=== PATIENT | female | born 1965 | race Caucasian/White ===

== ENCOUNTER → 2020-03-27 | Outpatient (CLI) | payer OTHER ==
[~2020-03-27] MED LIST: FEXO180T81 PO; FLUT9.9S NS; GLUC100018 PO; LOSA1TAB19 PO
--- NOTE | 2020-03-27 13:15 | EKG ---
[facility] [address] [place] [address] Test Date: 2020-03-27 Test Time: 13:12:28 Pat Name: FÉLIX RIVERA Department: Room: Gender: F Bulk Fluids Handler: [facility] : 1965 Requested By: MARISSA VALENTE Order Number: [id number] Reading MD: Kavon Walton MD Measurements Intervals [place] Rate: 59 P: 35 MS: 202 QRS: -14 QRSD: 86 T: 28 QT: 414 QTc: 410 Interpretive Statements SINUS RHYTHM Electronically Signed On 03-30-2020 16:13:52 PHYSICIAN EXTENDER by Kavon Walton MD
[2020-03-27 13:18] LABS: BASO % 1 % (0-3); EOS # 0.1 x10^3/uL (0.0-0.7); EOS % 3 % (0-3); HEMATOCRIT 34.5 % (36.0-47.0); HEMOGLOBIN 11.3 g/dL (12.0-15.5); LYMPH # 1.6 x10^3/uL (1.0-4.8); LYMPH % 27 % (24-48); MEAN CORPUSCULAR HEMOGLOBIN 27 pg (25-35); MEAN CORPUSCULAR HGB CONC 33 g/dL (31-37); MEAN CORPUSCULAR VOLUME 82 fL (79-100); MONO # 0.6 x10^3/uL (0.0-1.1); MONO % 10 % (0-9); NEUT # 3.6 x10^3/uL (1.8-7.7); NEUT % 60 % (31-73); PLATELET COUNT 191 x10^3/uL (140-400); RED BLOOD COUNT 4.21 x10^6/uL (3.50-5.40); RED CELL DISTRIBUTION WIDTH 14.9 % (11.5-14.5)
[2020-03-27 13:18] LABS: BILIRUBIN,URINE NEGATIVE (NEG); CLARITY,URINE CLEAR; COLOR,URINE YELLOW; NITRITE,URINE NEGATIVE (NEG); PH,URINE 5.5 (<5.0-8.0); PROTEIN,URINE NEGATIVE (NEG-TRACE); UROBILINOGEN,URINE 0.2 mg/dL (0.2 mg/dL)
[2020-03-27 13:24] LABS: ALBUMIN 3.8 g/dL (3.4-5.0); ALBUMIN/GLOBULIN RATIO 1.2 (1.0-1.7); CALCIUM 8.7 mg/dL (8.5-10.1); CREATININE 0.8 mg/dL (0.6-1.0); POTASSIUM 3.7 mmol/L (3.5-5.1); TOTAL BILIRUBIN 0.4 mg/dL (0.2-1.0); TOTAL PROTEIN 6.9 g/dL (6.4-8.2)
[2020-03-27 13:30] LABS: BACTERIA,URINE FEW /HPF (0-FEW); RBC,URINE 0 /HPF (0-2); WBC,URINE 0 /HPF (0-4)
--- NOTE | 2020-03-27 14:31 | RAD ---
CHEST PA LATERAL INDICATION: preop. COMPARISON STUDY: None. FINDINGS: Lungs: Normal lung volume. No pulmonary mass or consolidation. The tracheobronchial tree and hilar structures are normal. Pleura: No pleural effusion or pneumothorax. Heart and Mediastinum: The cardiomediastinal silhouette is normal. The great vessels of the thorax are normal. Bones and Soft Tissues: The bones and soft tissues are within normal limits. IMPRESSION: No acute cardiopulmonary process. Electronically signed by: Eric Seals MD (03/27/2020 2:29 PM) [id number]
== END ==
LOC: SURGPAT 12:10
PROVIDERS: ATTEND Obstetrics & Gynecology
DX: Z01.818 Encounter for other preprocedural examination (principal); I10 Essential (primary) hypertension; Z20.828 Contact with and (suspected) exposure to other viral communicable diseases
CPT/HCPCS: 71046; 80053; 81001; 85025; 93005; U0003

== ENCOUNTER 2020-04-02 06:53 | Observation (INO) | payer OTHER ==
[2020-04-02] VITALS (7 sets, daily range): BP systolic 113–143; BP diastolic 67–82
[~2020-04-02] VITALS: Ht 170.2 cm; Wt 49.9 kg
[~2020-04-02 06:53] MED LIST changes: +ceFAZolin SODIUM IV Push 1 GM VIAL. IVP PRN
[2020-04-02] MEDS ORDERED: BUPIVACAINE-EPI 0.25%-1:200000 MPF 30 ML VIAL. INJ PRN (07:00)
[2020-04-02] MEDS ORDERED: IV RINGERS,LACTATED 1000ML 1,000 ML IV SCH (07:00)
[2020-04-02] MEDS ORDERED: fentaNYL PF VIAL 100 MCG/2 ML VIAL IV PRN (07:00)
[2020-04-02] MEDS ORDERED: ONDANSETRON PF 4 MG/2 ML VIAL. IV PRN ×2 (07:00→11:00)
[2020-04-02] MEDS ORDERED: PROCHLORPERAZINE 10 MG/2 ML VIAL. IV PRN (07:00)
[2020-04-02] MEDS ORDERED: ROCURONIUM 50 MG/5 ML VIAL. ONE ×2 (08:03→09:42)
[2020-04-02] MEDS ORDERED: GLYCOPYRROLATE 1 MG/5 ML VIAL. ONE (08:03)
[2020-04-02] MEDS ORDERED: fentaNYL PF VIAL 100 MCG/2 ML VIAL ONE ×3 (08:03→11:09)
[2020-04-02] MEDS ORDERED: ONDANSETRON PF 4 MG/2 ML VIAL. ONE (08:04)
[2020-04-02] MEDS ORDERED: MIDAZOLAM HCL/PF 2 MG/2 ML VIAL. ONE (08:04)
[2020-04-02] MEDS ORDERED: NEOSTIGMINE METHYLSULFATE 5 MG/5 ML SYRINGE. ONE (08:04)
[2020-04-02] MEDS ORDERED: DEXAMETHASONE SOD PHOS 4 MG/ML VIAL ONE (08:04)
[2020-04-02] MEDS ORDERED: PROPOFOL 10 MG/ML (20ML) VIAL. IV ONE (08:04)
[2020-04-02] MEDS ORDERED: LIDOCAINE 2% PF 5 ML VIAL. ONE (08:04)
[2020-04-02] MEDS ORDERED: ePHEDrine PF IN SALINE 50 MG/10 ML SYRINGE. IV ONE (08:34)
[2020-04-02] MEDS ORDERED: SEVOFLURANE > 120 MINUTES. IH ONE (09:24)
[2020-04-02] MEDS ORDERED: ESTROGENS, CONJ VAGINAL CREAM 30GM TUBE. ONE (09:58)
[2020-04-02] MEDS ORDERED: diphenhydrAMINE 50 MG/ML VIAL IV PRN (11:00)
[2020-04-02] MEDS ORDERED: 0.9 % SODIUM CHLORIDE 10 ML DISP.SYRIN. IV PRN (11:00)
[2020-04-02] MEDS ORDERED: MORPHINE SULFATE 2 MG/ML VIAL. IV PRN (11:00)
[2020-04-02] MEDS ORDERED: NALOXONE 0.4 MG/ML VIAL. IV PRN (11:00)
[2020-04-02] MEDS ORDERED: diphenhydrAMINE HCL 25 MG CAPSULE PO PRN (11:00)
[2020-04-02] MEDS ORDERED: ZOLPIDEM 5 MG TABLET. PO PRN (11:00)
[2020-04-02] MEDS ORDERED: MAGNESIUM HYDROXIDE 2,400 MG/30 ML ORAL.SUSP. PO PRN (11:00)
[2020-04-02] MEDS ORDERED: MAG HYDROX/ALUMINUM HYD/SIMETH 30 ML ORAL.SUSP PO PRN (11:00)
[2020-04-02] MEDS ORDERED: CALCIUM CARBONATE 500 MG TAB.CHEW PO PRN (11:00)
[2020-04-02] MEDS ORDERED: LACTULOSE 20 GM/30 ML SOLUTION. PO PRN (11:00)
[2020-04-02] MEDS: fentaNYL PF VIAL 100 MCG/2 ML VIAL IV PRN ×3 (11:11→13:30)
--- NOTE | 2020-04-02 11:13 | PDOC ---
BRIEF OPERATIVE NOTE Date: Apr 02, 2020 Pre-Op Diagnosis dysmenorrhea, uterine fibroids, enlarged uterus, anemia Post-Op Diagnosis same Procedure Performed LAVH/RSO/left salpingectomy Surgeon Dr. Tiffanie Fam Kiss Setter Hand Richard Wang Anesthesiologist Dr. Rodriguez Anesthesia Type: General Blood Loss 200cc IV Fluid 1300cc Urine Output 700cc clear via maxwell Specimens Obtained cervix, uterus, right tube and ovary, left tube Findings enlarged fibroid uterus, wide and minimal mobility initially, mild left sided adhesions Complications none Operative Note [id number] TIFFANIE FAM MD Apr 02, 2020 11:13
[2020-04-02] MEDS ORDERED: MORPHINE SULFATE 2 MG/ML VIAL. ONE (11:25)
[2020-04-02] MEDS: MORPHINE SULFATE 2 MG/ML VIAL. IV PRN ×2 (11:30→11:40)
--- NOTE | 2020-04-02 11:46 | OP ---
DATE OF SURGERY: 04/02/2020 PREOPERATIVE DIAGNOSES: Enlarged fibroid uterus, dysmenorrhea and anemia. POSTOPERATIVE DIAGNOSES: Enlarged fibroid uterus, dysmenorrhea and anemia. PROCEDURE: Laparoscopic-assisted vaginal hysterectomy, right salpingo-oophorectomy, left salpingectomy. SURGEON: Marissa Fam MD PRODUCTION FINISHER: PRASANNA Wang. ANESTHESIA: General. ANESTHESIOLOGIST: Adria Rodriguez MD ESTIMATED BLOOD LOSS: 200 mL. URINE OUTPUT: 700 mL clear via Sparks. INTRAVENOUS FLUIDS: 1300 mL of Crystalloid. SPECIMENS: Cervix, uterus, right tube and ovary, left tube. FINDINGS: Enlarged fibroid uterus that was wide with minimal mobility initially, mild left-sided adhesions. COMPLICATIONS: None. DESCRIPTION OF PROCEDURE: This patient was taken to the operating room where general anesthesia was placed. The patient was placed in dorsal lithotomy position in Carlos stirrups. The patient's abdomen and vagina were both prepped and draped in the normal sterile fashion and a Sparks catheter had been inserted under sterile technique. Upon my arrival, a timeout was performed. Once everyone agreed on the patient, the site, the procedure, the antibiotics, the procedure was initiated. A bivalve speculum was placed in the patient's vagina. A single-tooth tenaculum was used to grasp the anterior lip of the cervix. A 10 mL of 0.25% Marcaine with epinephrine was used to circumferentially inject around the cervix for both hemodissection and hemostatic purposes later. The Valtchev uterine manipulator was placed through the endocervical os, locked on the single tooth tenaculum and the bivalve speculum was then removed. Top gloves were discarded and changed. Attention was then turned to the abdomen where a small supraumbilical skin incision was made with the scalpel. A curved Maryellen was used to dissect through the subcuticular layer to the fascia. The 5 mm Visiport was used to directly into the abdominal cavity. Opening patient pressure was 3-4 mmHg. Carbon dioxide gas was used to insufflate the abdominal cavity and direct abdominal placement was confirmed via the laparoscope. The patient was placed in Trendelenburg position and overhead lights were dimmed. Right and left lower quadrant ports were placed under direct visualization. Finding an area clear transilluminating the abdominal wall, finding an area clear of any vasculature, making a small incision and placing the 5 mm atraumatic port under direct visualization in, 3-4 mL of air was placed in the trocar cuff on each of these. The camera was then moved laterally to look at the umbilical port and once it was clear, it was insufflated as well. The camera was moved back to the midline. The uterus did not initially manipulate well as it was a wide enlarged fibroid uterus. We looked at both the left ovary, right ovary and the patient desired one out. So, the right ovary was just the tube had more cysts and both looked normal, so it was decided to go ahead and take the right ovary, found the ureter coursing low in the pelvis identified easily, staying high on the infundibulopelvic ligament, cauterizing and cutting that, freeing up the right ovary and then crossing the right round ligament. The LigaSure was used to cauterize and cut with this. The left tube and ovary were elevated, finding the ureter in the pelvis staying above the ovary below the tube, doing a left salpingectomy and then crossing the left round ligament and left uteroovarian pedicle, cauterizing and cutting Once this was done, the bladder flap was created sharply, elevating it with the [place] and using the monopolar hook to cut across and take it down sharply. The uterine vessels were then obtained on both sides where the uterus began blanching, cutting the blood supply. Once the bladder flap had been created and the bladder was down and then going down through the cardinal and broad ligaments on both sides staying inside that uterine pedicle to the uterosacrals bilaterally. The uterus was now free and a little bit more mobile and was completely blanched. So at this point, all instruments were removed from the abdomen and attention was turned vaginally. The single tooth and Valtchev were removed. A weighted speculum was placed in the patient's vagina. Thyroid David clamps were placed on the anterior and posterior lips of the cervix respectively. A scalpel was used to make a circumferential incision in the cervix and it was taken out sharply under direct visualization anteriorly. An open Ray-Romeo 4 x 4 was then used to gently push up the anterior bladder peritoneum until we digitally and bluntly entered the anterior cul-de-sac. The 4 x 4 was removed and a curved Milton was placed in the anterior cul-de-sac. The cervix was elevated and the posterior cul-de-sac was sharply entered with curved Blount scissors. A #0 Vicryl stitch was used to secure the posterior peritoneum here to the vaginal cuff. It was tagged with a curved Maryellen clamp. The needle was cut and passed off. The short weighted vaginal speculum was removed and replaced with the long weighted Marlon speculum in the posterior cul-de-sac. Curved Stepan clamps x 2 were placed on the patient's left uterosacral ligament where they were doubly clamped with curved Heaneys, cut with curved Blount scissors and suture ligated x 2 with 0 Vicryl. Second one was taken through the vaginal cuff securing uterosacral ligament to the vaginal cuff. Needle was cut and passed off, tagged with a straight Maryellen clamp. This was done exactly the same on the patient's right side, double clamping the uterosacrals with curved Stepan's, cutting with curved Blount scissors, suture ligating x 2 with 0 Vicryl, taking the second one through the vaginal cuff, tagging it with a straight Maryellen clamp and cutting and passing the needle off. The remaining pedicles on both sides were delineated with the right angle clamp to the vaginal LigaSure was used to cauterize and cut the remaining pedicles. Cervix, uterus, left tube and right tube and ovary were delivered in total. Initially, I had to release some of the pressure on the uterus pulling it down putting a tenaculum on the posterior uterus and pulling it and then using a scalpel to start to cut into it and morcellated once the blood supply was completely secured and it was free, as soon as I did this, so it released and I was able to cut the shoe horn it and wedge it out. Once it was out, sponge stick was used to examine the pedicles. A long Allis was used to grasp the anterior bladder peritoneum. The long Marlon speculum was removed and the short weighted vaginal speculum was placed in the posterior cul-de-sac. A 2-0 Vicryl was taken through the anterior bladder peritoneum, left uterosacral ligament, posterior peritoneum and right uterosacral ligament, thus closing the peritoneum in a pursestring like fashion. The right and left uterosacral tags were clipped. The vaginal cuff was closed in an anterior to posterior running locked fashion with 2-0 Vicryl and tied to that posterior cuff tag. A few imbricating stitches were placed in the middle, but with excellent results. There was no active bleeding. Everything was hemostatic, so all instruments were removed. All sponge, lap and needle counts were correct x 2 by OR personnel before going above. At this point, all gloves were discarded and changed and attention was turned back above for a second look. Overhead lights were redimmed. She was placed back in Trendelenburg. Gas was reinsufflated. There was some very slight bleeding from looked like the ascending branch of the uterine, not it bleeding, you could see it pulsating underneath of it on the posterior vaginal cuff, so it was grasped with the cautery and easily cauterized. Copious irrigation revealed hemostasis. The right and left pericolic gutters were clear. The cul-de-sac remained dry and hemostatic after copious irrigation once getting that one area. Tisseel was then placed over all the cuff with excellent results. The right and left lower quadrant ports, the gas was deflated from the trocar cuff. They were removed under direct visualization and hemostatic. Looking at the cuff after each one of these. It remained hemostatic with that Tisseel. Everything was completely dry even with the gas going out. The trocar on the midline was deflated as well and then it was removed. All three port sites were closed with 4-0 nylon and injected with 10 mL of 0.25% Marcaine with epinephrine. All sponge, lap and needle counts were again correct x 2 by OR personnel. She was awakened from anesthesia and brought to recovery room in stable condition. MARISSA FAM MD DR: LISSET/rossy JOB#: [id number] / [id number]
[2020-04-02] MEDS ORDERED: PROCHLORPERAZINE 10 MG/2 ML VIAL. ONE (11:47)
[2020-04-02] MEDS ORDERED: HYDROmorphone 2 MG/ML VIAL ONE (11:58)
[2020-04-02] MEDS: HYDROmorphone 2 MG/ML VIAL IV PRN ×3 (11:59→12:26)
[2020-04-02] MEDS: HYDROcodone/APAP 5/325MG 1 TAB TABLET PO PRN ×2 (16:37→20:17)
[2020-04-02] MEDS: OXYBUTYNIN CHLORIDE 5 MG TABLET PO SCH (18:54)
[2020-04-02] MEDS: PHENAZOPYRIDINE 200 MG TABLET. PO PRN (20:11)
[2020-04-03 00:01] VITALS: BP 118/66
[2020-04-03] MEDS: oxyCODONE/APAP 5/325 1 TAB TABLET PO PRN ×2 (02:01→09:17)
[2020-04-03 04:00] VITALS: BP 110/54
--- NOTE | 2020-04-03 08:52 | PDOC ---
SURGICAL PROGRESS NOTE DATE: 04/03/20 TIME: 08:47 Subjective Doing much better. Tolerating regular diet without n/v. Steady on her feet, now voiding well. Wants to go home Vital Signs Vital Signs Date Time Temp Pulse Resp B/P (MAP) Pulse Ox O2 Delivery O2 Flow Rate FiO2 04/03/20 04:00 98.7 70 16 110/54 (72) Room Air 98.7 04/02/20 13:30 98 04/02/20 11:17 8 I&O Intake and Output 04/03/20 07:00 Intake Total 4800 ml Output Total 3015 ml Balance 1785 ml Intake Oral 3000 ml IV Total 1800 ml Output Urine Total 2815 ml Estimated Blood Loss 200 ml # Voids 2 PATIENT HAS A CARRANZA: No General: Alert, Oriented X3, Cooperative, No acute distress HEENT: Atraumatic Heart: Regular rate Abdomen: Soft, Other (all port sites c/d/i with appropriate tenderness in abdomen) Extremities: No clubbing, No cyanosis, No edema, No tenderness/swelling Skin: No rashes, No breakdown, No significant lesion Neuro: Normal speech Psych/Mental Status: Mental status NL, Mood NL Labs Laboratory Tests Test 04/02/20 07:13 Bedside Urine HCG, Qualitative Hcg negative (Negative) I have reviewed the following labs, vitals, nursing Cardiovascular: HTN Pulmonary: No pertinent hx Heme/Onc: Anemia NOS Assessment/Plan POD#1 s/p LAVH/RSO/left salpingectomy Routine PO Care d/c to home NPV x 6 weeks light/limited activity x 2 weeks keep scheduled one week follow up with me call or return sooner for any other questions or concerns not limited to but including pain unrelieved with pain meds, increased or unexplained vb, T>100.4 already has narcotic pain meds at home will give pyridium for a total of 2d and oxybutynin for a week for bladder spasms Justicifation of Admission Dx: Justifications for Admission: Justification of Admission Dx: Yes MARISSA VALENTE MD Apr 03, 2020 08:52
--- NOTE | 2020-04-03 08:57 | PDOC3 ---
Discharge Summary Visit Information Date of Admission: Apr 02, 2020 Date of Discharge: Apr 03, 2020 Final Diagnosis anemia, menorrhagia, fibroid uterus Brief Hospital Course Allergies Allergies Coded Allergies Type Severity Reaction Last Updated Verified No Known Drug Allergies 03/27/20 No Vital Signs Vital Signs Date Time Temp Pulse Resp B/P (MAP) Pulse Ox O2 Delivery O2 Flow Rate FiO2 04/03/20 04:00 98.7 70 16 110/54 (72) Room Air 98.7 04/02/20 13:30 98 04/02/20 11:17 8 Lab Results Laboratory Tests Test 04/02/20 07:13 Bedside Urine HCG, Qualitative Hcg negative (Negative) Brief Hospital Course Ms. Goldberg is a 54 old female who presented with menorrhagia to anemia with enlarged fibroid uterus. She underwent and LAVH/RSO/left salpingectomy yesterday without complication. She initially yesterday afternoon had some trouble urinating and painful bladder spasms that resolved with pyridium and oxybutynin. She is doing well now without complaints. AFVSS awaiting morning hemalobin (lab literally in there drawing blood when I was seeing her this am) pending that being ok, will d/c to home later today Assessment Assessment POD#1 s/p LAVH/RSO/left salpingectomy Routine PO Care d/c to home NPV x 6 weeks light/limited activity x 2 weeks keep scheduled one week follow up with me call or return sooner for any other questions or concerns not limited to but including pain unrelieved with pain meds, increased or unexplained vb, T>100.4 already has narcotic pain meds at home will give pyridium for a total of 2d and oxybutynin for a week for bladder spasms Discharge Information Condition at Discharge: Stable Follow Up: Weeks Disposition/Orders: D/C to Home Scheduled Fexofenadine Hcl (Marcia Allergy) 180 Mg Tablet, 1 TAB PO DAILY for allergy symptoms for 14 Days, #14 Ref 0 (Reported) Entered as Reported by: CANDIDA DIXON on 03/27/20 1239 Last Taken: Unknown Dose on 03/31/20 Last Action: Last Taken Edited on 04/02/20727 by Janneth Little Fluticasone Propionate (Flonase Allergy Relief) 9.9 Ml [place].susp, 2 SPRAYS NS DAILY for allergies, (Reported) Entered as Reported by: CANDIDA DIXON on 03/27/201239 Last Taken: Unknown Dose on 03/31/20 Last Action: Last Taken Edited on 06/02/19727 by Janneth Little Glucosamine Sulfate 2KCL (Glucosamine) 1,000 Mg Tablet, 1,000 MG PO DAILY for heart, (Reported) Entered as Reported by: CANDIDA DIXON on 03/27/201241 Last Taken: Unknown Dose on 03/31/20 Last Action: Last Taken Edited on 04/02/20727 by Janneth Little Losartan/Hydrochlorothiazide (Losartan-Hctz 50-12.5 Mg Tab) 1 Each Tablet, 1 TAB PO DAILY for htn, #30 Ref 5 (Reported) Entered as Reported by: CANDIDA DIXON on 03/27/201241 Last Taken: Unknown Dose on 04/02/20 0600 Last Action: Last Taken Edited on 04/02/20727 by Janneth Little Patient Instructions Patient Instructions POD#1 s/p LAVH/RSO/left salpingectomy Routine PO Care d/c to home NPV x 6 weeks light/limited activity x 2 weeks keep scheduled one week follow up with me call or return sooner for any other questions or concerns not limited to but including pain unrelieved with pain meds, increased or unexplained vb, T>100.4 already has narcotic pain meds at home will give pyridium for a total of 2d and oxybutynin for a week for bladder spasms Justicifation of Admission Dx: Justifications for Admission: Justification of Admission Dx: Yes MARISSA VALENTE MD Apr 03, 2020 08:57
[2020-04-03] MEDS ORDERED: IBUPROFEN 400 MG TABLET. PO PRN (09:00)
[2020-04-03] MEDS: OXYBUTYNIN CHLORIDE 5 MG TABLET PO SCH (09:16)
[2020-04-03] MEDS: SIMETHICONE 80 MG TAB.CHEW PO PRN ×2 (09:17→09:18)
[2020-04-03] MEDS: PHENAZOPYRIDINE 200 MG TABLET. PO PRN (09:26)
[2020-04-03 09:47] LABS: CALCIUM 8.3 mg/dL (8.5-10.1); CREATININE 0.8 mg/dL (0.6-1.0)
[2020-04-03 10:00] VITALS: BP 115/63
--- NOTE | 2020-04-03 10:45 | NUR ---
Discharge and follow instructions reviewed and given to pt along with Rx's x2. Pt taken out of the hospital per W/C with her belongings and her by her side.
--- NOTE | 2020-04-07 09:12 | PATHOLOGY ---
[facility] Accession Number: [id number] . 01 Material submitted: . uterus - UTERUS, CERVIX, BILATERAL TUBES, RIGHT OVARY . 01 Clinical history: . DYSMENORRHEA, FIBROIDS . 02 Diagnosis: Uterus and attached right fallopian tube and ovary and left fallopian tube, laparoscopic assisted vaginal hysterectomy with bilateral salpingectomy and right oophorectomy: - Leiomyomas, uterine corpus, submucosal/intramural/subserosal, multiple, the largest measuring 4.0 cm in greatest dimension (uterine weight 244 grams). - Early secretory endometrium. - Adenomyosis, uterine corpus, focal. - Congestion of bilateral fallopian tubes. - Cystic Walthard rests and paratubal cyst of right fallopian tube. - Cystic Walthard rests and focal subserosal endosalpingiosis of left fallopian tube. - Cystic follicle and several small serous cysts of right ovary. (JPM:shaka; 04/06/2020) R 04/06/2020 1618 Local . 02 Comment: There is no atypia or evidence of malignancy. (JPM:shaka; 04/06/2020) . 02 Electronically signed: . Modesto Berg MD, Pathologist NPI- [id number] . 01 Gross description: . The specimen is received in formalin, labeled "Sandra Goldberg, uterus cervix bilateral tubes right ovary" and consists of a 244 g uterus with attached cervix measuring 11.5 x 8.5 x 5.8 cm. Attached is the left fimbriated fallopian tube measuring 8.5 cm in length and up to 0.9 cm in diameter as well as the right tubo-ovarian complex consisting of a fimbriated fallopian tube (7.6 cm in length and 0.7 cm in diameter) attached to a partially disrupted 3.2 x 2.2 x 1.1 cm ovary. The uterine serosa is ponce smooth shiny with multifocal subserosal nodules. The approximate 1.1 cm cervical os is surrounded by pink-ponce hemorrhagic ectocervical mucosa. The endocervical canal is smooth measuring 2.0 cm. The endometrial cavity is triangular measuring 7.4 cm in length and up to 4.0 cm in width lined by a shaggy brown endometrium measuring 0.1-0.3 cm. There are multiple submucosal, subserosal and intramural nodules with the largest measuring 4.0 cm. The myometrium is pink-ponce measuring up to 3.7 cm with the previously mentioned nodule showing homogeneous white to pink whorled cut surfaces. No additional gross lesions are identified. . Both fallopian tubes are purple with multiple paratubal cysts measuring up to 0.8 cm. Sectioning reveals well-defined central lumens. The right ovary shows a deflated hemorrhagic cystic structure as well as a few additional uniloculated cysts containing clear fluid. Leather Grader sections are submitted as follows: . A1: Anterior cervix A2: Posterior cervix A3: Anterior endomyometrium A4: Posterior endomyometrium A5-A6: Nodules A7: Right fallopian tube A8-A9: Right ovary A10: Left fallopian tube (SDY; 04/03/2020) SYU/SYU 04/06/2020 1614 Local . 02 Pathologist provided ICD-10: D25.0, D25.1, D25.2, N80.0, N83.8, N94.89, N83.201 . 02 CPT . 024140 Specimen Comment: A courtesy copy of this report has been sent to [phone], [phone] Specimen Comment: [id number] Specimen Comment: Report sent to / DR BRADY Performed at: 01 [facility] [address], [place], [place] [id number] MD Leon Turner MD Phone: [phone] Performed at: 02 [facility] [address], [place] [id number] MD Modesto Berg MD Phone: [phone]
--- NOTE | 2020-05-04 09:58 | NUR ---
Stop time for KCl started at 14:23 on 04/02--stop time is 22:35 KCl started at 22:39 on 04/02--stop time 04/03 at 06:30
== END 2020-04-03 10:45 | disposition home or self-care (01) ==
LOC: SURG 06:53 → EDUNIT# 08:30 → 3 NORTH 10:56
PROVIDERS: ADMIT Obstetrics & Gynecology; ATTEND Obstetrics & Gynecology
DX: D25.9 Leiomyoma of uterus, unspecified (principal); N94.6 Dysmenorrhea, unspecified; D64.9 Anemia, unspecified; N85.2 Hypertrophy of uterus; I10 Essential (primary) hypertension
CPT/HCPCS: 36415; 58552; 80048; 81025; 85014; 86850; 86900; 86901; 88307; 96361; 96374; A7015; G0378; G0379; J0690; J0780; J1100; J1170; J2250; J2270; J2405; J2704; J2710; J3010; J3480; J3490; J7030; J7120